=== PATIENT | female | born 1990 | race Two or more races ===

== ENCOUNTER 2019-08-08 15:38 | Emergency (ER) | payer SELFPAY ==
[~2019-08-08] VITALS: Ht 154.9 cm; Wt 45.4 kg
[2019-08-08] MEDS ORDERED: NKM (15:48)
[2019-08-08 15:56] VITALS: BP 105/70
[2019-08-08] MEDS ORDERED: Meclizine 25mg tab ORAL ONE (16:30)
[2019-08-08] MEDS ORDERED: Omnipaque-300 100ml vial INJ PRN (16:30)
[2019-08-08 16:33] LABS: BASOPHILS % (AUTO) 0.8 % (0.0-2.0); EOSINOPHILS % (AUTO) 1.1 % (0.0-3.0); HEMATOCRIT 36.7 % (37.0-47.0); HEMOGLOBIN 13.1 G/DL (12.0-16.0); LYMPHOCYTES % (AUTO) 32.9 % (20.0-45.0); MEAN CORPUSCULAR VOLUME 88 FL (80-99); MONOCYTES % (AUTO) 6.2 % (1.0-10.0); PLATELET COUNT 254 K/UL (150-450); RED BLOOD COUNT 4.17 M/UL (4.20-5.40); RED CELL DISTRIBUTION WIDTH 10.1 % (11.6-14.8); WHITE BLOOD COUNT 9.4 K/UL (4.8-10.8)
[2019-08-08 16:34] LABS: APPEARANCE,URINE CLEAR; BILIRUBIN, URINE NEGATIVE (NEGATIVE); COLOR,URINE PALE YELLOW; GLUCOSE, URINE (UA) NEGATIVE (NEGATIVE); KETONES,URINE NEGATIVE (NEGATIVE); LEUKOCYTE ESTERASE ,URINE NEGATIVE (NEGATIVE); NITRITE,URINE NEGATIVE (NEGATIVE); PH,URINE 8 (4.5-8.0); PROTEIN,URINE NEGATIVE (NEGATIVE); UROBILINOGEN,URINE NORMAL MG/DL (0.0-1.0)
[2019-08-08 16:37] LABS: ANION GAP 5 mmol/L (5-15); BLOOD UREA NITROGEN 7 mg/dL (7-18); CALCIUM 8.8 MG/DL (8.5-10.1); CARBON DIOXIDE 30 MMOL/L (21-32); CHLORIDE 104 MMOL/L (98-107); CREATININE 0.9 MG/DL (0.55-1.30); POTASSIUM 3.8 MMOL/L (3.5-5.1); SODIUM 139 MMOL/L (136-145)
[2019-08-08 16:41] LABS: ALANINE AMINOTRANSFERASE 17 U/L (12-78); ALBUMIN 3.9 G/DL (3.4-5.0); ALBUMIN/GLOBULIN RATIO 1.3 (1.0-2.7); ALKALINE PHOSPHATASE 66 U/L (46-116); ASPARTATE AMINO TRANSFERASE 9 U/L (15-37); BILIRUBIN,TOTAL 0.3 MG/DL (0.2-1.0)
--- NOTE | 2019-08-08 16:48 | Emergency Room Report ---
History of Present Illness General Chief Complaint: Abdominal Pain Source: Patient Present Illness HPI Patient is a 29-year-old female presents after increased right-sided abdominal pain. She reports having acute onset of sharp pain to the right side of her abdomen. She had associated nausea and vomiting. She reports feeling somewhat dizzy over the past 2 days. She reports having a vertigo-like sensation. Allergies: Coded Allergies: No Known Allergies (Unverified , 08/08/19) Patient History Past Medical History: see triage record Last Menstrual Period: 07/25/19 Now: No Reviewed Nursing Documentation: PMH: Agreed; PSxH: Agreed Nursing Documentation-PM Past Medical History: No History, Except For History Of Psychiatric Problem: Yes - anxiety Review of Systems All Other Systems: negative except mentioned in HPI Physical Exam Vital Signs Date Time Temp Pulse Resp B/P (MAP) Pulse Ox O2 Delivery O2 Flow Rate FiO2 08/08/19 15:43 98.6 77 18 105/70 (82) 98 Room Air Sp02 EP Interpretation: reviewed, normal General Appearance: normal inspection, well appearing, no apparent distress, alert, GCS 15 Head: atraumatic ENT: normal ENT inspection, hearing grossly normal, normal voice Neck: normal inspection, full range of motion, supple, no bony tend Respiratory: normal inspection, lungs clear, normal breath sounds, no respiratory distress, no retraction, no wheezing Cardiovascular #1: regular rate, rhythm, no edema Gastrointestinal: normal inspection, normal bowel sounds, non tender, soft, no guarding, no hernia Genitourinary: no CVA tenderness Musculoskeletal: normal inspection, back normal, normal range of motion Neurologic: alert, motor strength/tone normal, 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 Differential diagnosis include is not limited to gastroenteritis, vertigo, hepatitis among others. Because of complexity of patient's case laboratory tests and imaging studies were ordered. Patient was noted to have some abdominal pain. This was described as predominantly in the lower abdomen.CT imaging was ordered location of pain near the appendix. CT imaging of the abdomen pelvis read by radiology showed nonspecific inflammatory changes near the portal vein. Patient does not appear to have any evidence of systemic toxicity. Patient was advised of CT findings and advised to follow-up with her primary care physician for recheck. The patient is advised to follow up with primary care doctor in 1-2 days. Patient is advised to return if any worsening condition or if any changes in status that are concerning. This report is dictated with [employer] vice president corporate communications software which may occasionally lead to discrepancies related to use of this software. Labs Test 08/08/19 16:10 White Blood Count 9.4 K/UL (4.8-10.8) Red Blood Count 4.17 M/UL (4.20-5.40) Hemoglobin 13.1 G/DL (12.0-16.0) Hematocrit 36.7 % (37.0-47.0) Mean Corpuscular Volume 88 FL (80-99) Mean Corpuscular Hemoglobin 31.4 PG (27.0-31.0) Mean Corpuscular Hemoglobin Concent 35.7 G/DL (32.0-36.0) Red Cell Distribution Width 10.1 % (11.6-14.8) Platelet Count 254 K/UL (150-450) Mean Platelet Volume 6.1 FL (6.5-10.1) Neutrophils (%) (Auto) 59.0 % (45.0-75.0) Lymphocytes (%) (Auto) 32.9 % (20.0-45.0) Monocytes (%) (Auto) 6.2 % (1.0-10.0) Eosinophils (%) (Auto) 1.1 % (0.0-3.0) Basophils (%) (Auto) 0.8 % (0.0-2.0) Prothrombin Time 11.1 SEC (9.30-11.50) Prothromb Time International Ratio 1.0 (0.9-1.1) Activated Partial Thromboplast Time 28 SEC (23-33) Urine Color Pale yellow Urine Appearance Clear Urine pH 8 (4.5-8.0) Urine Specific Sterrett 1.010 (1.005-1.035) Urine Protein Negative (NEGATIVE) Urine Glucose (UA) Negative (NEGATIVE) Urine Ketones Negative (NEGATIVE) Urine Blood Negative (NEGATIVE) Urine Nitrite Negative (NEGATIVE) Urine Bilirubin Negative (NEGATIVE) Urine Urobilinogen Normal MG/DL (0.0-1.0) Urine Leukocyte Esterase Negative (NEGATIVE) Urine HCG, Qualitative Negative (NEGATIVE) Sodium Level 139 MMOL/L (136-145) Potassium Level 3.8 MMOL/L (3.5-5.1) Chloride Level 104 MMOL/L (98-107) Carbon Dioxide Level 30 MMOL/L (21-32) Anion Gap 5 mmol/L (5-15) Blood Urea Nitrogen 7 mg/dL (7-18) Creatinine 0.9 MG/DL (0.55-1.30) Estimat Glomerular Filtration Rate > 60 mL/min (>60) Glucose Level 92 MG/DL (74-106) Calcium Level 8.8 MG/DL (8.5-10.1) Total Bilirubin 0.3 MG/DL (0.2-1.0) Aspartate Amino Transf (AST/SGOT) 9 U/L (15-37) Alanine Aminotransferase (ALT/SGPT) 17 U/L (12-78) Alkaline Phosphatase 66 U/L (46-116) Troponin I 0.000 ng/mL (0.000-0.056) Total Protein 6.9 G/DL (6.4-8.2) Albumin 3.9 G/DL (3.4-5.0) Globulin 3.0 g/dL Albumin/Globulin Ratio 1.3 (1.0-2.7) Lipase 113 U/L (73-393) Last Vital Signs Date Time Temp Pulse Resp B/P (MAP) Pulse Ox O2 Delivery O2 Flow Rate FiO2 08/08/19 15:56 77 18 Room Air 08/08/19 15:56 98.6 105/70 98 Status: improved Disposition: HOME, SELF-CARE Condition: Stable Scripts Dicyclomine Hcl* (DICYCLOMINE HCL*) 10 Mg Capsule 10 MG ORAL QID, #20 CAP Prov: Christopher Westbrook MD 08/08/19 Ondansetron Odt* (ZOFRAN ODT*) 4 Mg Tab.rapdis 4 MG BC EVERY 6 HOURS PRN for Nausea & Vomiting, #10 TAB 0 Refills Prov: Christopher Westbrook MD 08/08/19 Referrals: NOT CHOSEN IPA/,REFERRING (PCP) Christopher Westbrook MD Aug 08, 2019 16:48
[2019-08-08 17:44] VITALS: BP 98/74
--- NOTE | 2019-08-08 17:45 | Diagnostic Imaging Report ---
History: ABD PAIN Exam: XR CXR 1 VIEW Comparison: None available FINDINGS: The lungs are clear. The cardiac and mediastinal contours appear within limits. The visualized osseous structures appear within limits. IMPRESSION: No evidence of acute disease.
--- NOTE | 2019-08-08 18:28 | Diagnostic Imaging Report ---
History: ABD PAIN Exam: CT ABDOMEN + PELVIS With Contrast Technique more: CTDI is 9.40 mGy and DLP is 493.90 mGy-cm. Technique more: One or more of the following dose reduction techniques were used: automated exposure control, adjustment of the mA and/or kV according to patient size, use of iterative reconstruction technique. Comparison: None available FINDINGS: Small platelike area of scar or atelectasis left base. The lung bases are otherwise clear. Diffuse appearance of possible periportal edema which can be seen with hepatitis, nonspecific, clinically correlate. The other abdominal solid organs, gallbladder and abdominal aorta appear within limits. No bowel dilation or free air. Normal caliber appendix without secondary signs. 2.3 cm cyst left ovary. The right ovary, uterus and bladder appear within limits. No free fluid. IMPRESSION: Diffuse appearance of possible periportal edema which can be seen with hepatitis, nonspecific, clinically correlate. 2.3 cm cyst left ovary. No free fluid.
[2019-08-08] MEDS ORDERED: DICYCLOMINE HCL10 MG ORAL (18:34)
[2019-08-08] MEDS ORDERED: ONDANSETRON ODT4 MG BC (18:34)
[2019-08-08 18:59] VITALS: BP 105/71
== END 2019-08-08 18:59 | disposition home or self-care (01) ==
LOC: EMR 16:15 → EDBD 16:15 → EMR 18:59
DX: R10.9 Unspecified abdominal pain (principal); R11.2 Nausea with vomiting, unspecified; F41.9 Anxiety disorder, unspecified
CPT/HCPCS: 36415; 71045; 74177; 80053; 81003; 81025; 83690; 84484; 85025; 85610; 85730; 96374; 99284; J2405; J7040; Q9967